=== PATIENT | male | born 1940 | race Caucasian/White ===

== ENCOUNTER 2018-02-12 22:57 | Emergency (ER) | payer MEDICARE, OTHER ==
[~2018-02-12] VITALS: Ht 182.9 cm; Wt 75.3 kg
--- OUTSIDE RECORDS SUMMARY | 2018-02-12 23:00 | XMS REPORT ---
Author Author [facility] Address Unknown Phone Unavailable Care Team Providers Care Burr Bench Operator Name Role Phone Andrew REYES Unavailable Unavailable KENROY OCONNELL Unavailable Unavailable Problems This patient has no known problems. Allergies, Adverse Reactions, Alerts This patient has no known allergies or adverse reactions. Medications This patient has no known medications. Results Test Description Test Time Test Comments Text Results Atomic Results Result Comments TISSUE EXAM 2017-09-18 15:40:00 Surgical Pathology Report Case: [id number] Authorizing Provider: Kenroy Oconnell MD Collected: 09/13/2017 1010 Ord ering Location: [facility] Laboratory Received: 09/13/2017 1017 Pathologist: Chris Cervantes MD Specimen: Polyp, Colon - Right/Ascending, ASCENDING COLON A. COLON, ASCENDING, ENDOSCOPIC SUBMUCOSAL DISSECTION: -TUBULAR ADENOMA - INKED/CAUTERIZED RESECTION MARGIN NEGATIVE FOR DYSPLASIA - PREVIOUS BIOPSY SITE IDENTIFIED Signing Pathologist Direct Phone Line: [phone] signed by Chris Cervantes MD on 09/18/2017 at 3:40 [id number] colon polyp Ascending colon polyp The specimen is received in a formalin-filled container labeled with the patient's information and labeled "ascending colon polyp" and consists of a shaved excision of colon mucosa measuring 4.5 x 3.2 x 0.1 cm. The mucosal surface has an area of nodularity that is carlson-red measuring 2 x 0.4 x 0.2 cm.The specimen is not oriented.Ink code: Periphery-blue, deep-black.The specimen is serially sectioned from one end to the other. The specimen is entirely submitted in A1 through A12 (cassette with more than one slice is one contiguous section).Pictures have been taken. CG/ew Performed BASIC METABOLIC PANEL 2017-09-15 06:03:00 SODIUM (BEAKER) (test fajc=660) 137 meq/L 136-145 POTASSIUM (BEAKER) (test ebsi=921) 3.6 meq/L 3.5-5.1 CHLORIDE (BEAKER) (test thtz=700) 105 meq/L 98-107 CO2 (BEAKER) (test pzcq=255) 25 meq/L 22-29 BLOOD UREA NITROGEN (BEAKER) (test knmn=705) 6 mg/dL 7-21 CREATININE (BEAKER) (test zhmi=827) 0.79 mg/dL 0.57-1.25 GLUCOSE RANDOM (BEAKER) (test ikgq=038) 100 mg/dL 70-105 CALCIUM (BEAKER) (test olac=083) 8.6 mg/dL 8.4-10.2 EGFR (BEAKER) (test tava=2309) 95 mL/min/1.73 sq m ESTIMATED GFR IS NOT ACCURATE CREATININE CLEARANCE IN PREDICTING GLOMERULAR FILTRATION RATE. ESTIMATED GFR IS NOT APPLICABLE FOR DIALYSIS PATIENTS. CBC W/PLT COUNT & AUTO [id number] 05:29:00* Test Item Value Reference Range Comments WHITE BLOOD CELL COUNT (BEAKER) (test gtnu=800) 5.7 K/ L 3.5-10.5 RED BLOOD CELL COUNT (BEAKER) (test orqk=036) 4.12 M/ L 4.63-6.08 HEMOGLOBIN (BEAKER) (test vqza=492) 12.5 GM/DL 13.7-17.5 HEMATOCRIT (BEAKER) (test maoh=604) 37.1 % 40.1-51.0 MEAN CORPUSCULAR VOLUME (BEAKER) (test nwhw=308) 90.0 fL 79.0-92.2 MEAN CORPUSCULAR HEMOGLOBIN (BEAKER) (test dlnq=553) 30.3 pg 25.7-32.2 MEAN CORPUSCULAR HEMOGLOBIN CONC (BEAKER) (test umea=116) 33.7 GM/DL 32.3-36.5 RED CELL DISTRIBUTION WIDTH (BEAKER) (test obfc=298) 13.1 % 11.6-14.4 PLATELET COUNT (BEAKER) (test zfpt=471) 136 K/CU MM 150-450 MEAN PLATELET VOLUME (BEAKER) (test vydo=522) 10.5 fL 9.4-12.4 NUCLEATED RED BLOOD CELLS (BEAKER) (test jpmh=652) 0 /100 WBC 0-0 NEUTROPHILS RELATIVE PERCENT (BEAKER) (test vcet=655) 65 % LYMPHOCYTES RELATIVE PERCENT (BEAKER) (test pssy=612) 19 % MONOCYTES RELATIVE PERCENT (BEAKER) (test xaru=200) 13 % EOSINOPHILS RELATIVE PERCENT (BEAKER) (test arxz=815) 2 % BASOPHILS RELATIVE PERCENT (BEAKER) (test qdwz=049) 1 % NEUTROPHILS ABSOLUTE COUNT (BEAKER) (test vkxe=684) 3.70 K/ L 1.78-5.38 LYMPHOCYTES ABSOLUTE COUNT (BEAKER) (test aplc=198) 1.05 K/ L 1.32-3.57 MONOCYTES ABSOLUTE COUNT (BEAKER) (test dtsk=618) 0.72 K/ L 0.30-0.82 EOSINOPHILS ABSOLUTE COUNT (BEAKER) (test yctc=527) 0.12 K/ L 0.04-0.54 BASOPHILS ABSOLUTE COUNT (BEAKER) (test zerb=470) 0.05 K/ L 0.01-0.08 IMMATURE GRANULOCYTES-RELATIVE PERCENT (BEAKER) (test oajj=7527) 0 % 0-1 CT, [id number] 13:06:00Reason for exam:->POST-OP PROBLEMWhat is the patient's sedation requirement?->No SedationFINAL REPORT ABDOMINAL AND PELVIS CT DATED 09/14/2017 CLINICAL INFORMATION: POST-OP PROBLEMABDOMINAL PAIN TECHNIQUE: Axial images of the abdomen and pelvis were obtained from diaphragm to the pubic symphysis with intravenous contrast. This exam was performed according to our departmental dose-optimization program, which includes automated exposure control, adjustment of the mA and/or kV according to patient size and/or use of interactive reconstruction technique. COMMENT: Multiple surgical clips are seen in the region of the proximal descending colon/cecum. There is soft tissue stranding adjacent to the cecum that represent post procedure changes. Small to moderate amount of free air is seen in the abdomen and pelvis. Subcutaneous emphysema is noted in the lower ab domen and pelvis. No small or large bowel dilatation is present. Appendix is nor mal in caliber. Liver and spleen are normal in size without focal abnormality. Gallbladder is contracted. No gallstone or biliary dilatation is noted. Pancrea s and adrenals are unremarkable. Both kidneys are normal in size and functioni ng. No hydronephrosis, hydroureter, urolithiasis is seen. Prostate is is normal in size. In her bladder is distended. No mass, adenopathy or ascites is present. IMPRESSION: 1. Pneumoperitoneum in the abdomen and pelvis suggestive of postop erative changes/bowel perforation.2. Surgical clips in the proximal ascending co scott/cecum.3. Subcutaneous emphysema in the abdomen and pelvis. Signed: Timothy Weiner MDReport Verified Date/Time: 09/14/2017 13:06:23 Reading Location: [facility] B1 C0 13Y CT Body Reading Room Electronically signed by: ROCKY WEINER M.D. on 01:06 PM [id number] 11:34:00* Test Item Value Reference Range Comments LIPASE (BEAKER) (test pgcw=723) 10 U/L 8-78 ALT (SGPT)2017-09-14 11:34:00* Test Item Value Reference Range Comments ALT (SGPT) (BEAKER) (test qgby=152) 12 U/L 6-55 AST (SGOT)2017-09-14 11:34:00* Test Item Value Reference Range Comments AST (SGOT) (BEAKER) (test gfli=614) 18 U/L 5-34 BASIC METABOLIC [id number] 11:34:00* Test Item Value Reference Range Comments SODIUM (BEAKER) (test ylxr=051) 139 meq/L 136-145 POTASSIUM (BEAKER) (test atzy=789) 3.9 meq/L 3.5-5.1 CHLORIDE (BEAKER) (test djtd=275) 104 meq/L 98-107 CO2 (BEAKER) (test vkjt=952) 25 meq/L 22-29 BLOOD UREA NITROGEN (BEAKER) (test fvqv=664) 6 mg/dL 7-21 CREATININE (BEAKER) (test bckq=472) 0.96 mg/dL 0.57-1.25 GLUCOSE RANDOM (BEAKER) (test wxww=149) 108 mg/dL 70-105 CALCIUM (BEAKER) (test rmvu=989) 9.3 mg/dL 8.4-10.2 EGFR (BEAKER) (test wdso=5807) 76 mL/min/1.73 sq m ESTIMATED GFR IS NOT ACCURATE CREATININE CLEARANCE IN PREDICTING GLOMERULAR FILTRATION RATE. ESTIMATED GFR IS NOT APPLICABLE FOR DIALYSIS PATIENTS. BILIRUBIN, ADULT [id number] 11:34:00* Test Item Value Reference Range Comments BILIRUBIN TOTAL (BEAKER) (test phpm=520) 1.2 mg/dL 0.2-1.2 CBC W/PLT COUNT & AUTO [id number] 11:15:00* Test Item Value Reference Range Comments WHITE BLOOD CELL COUNT (BEAKER) (test jrjd=463) 9.4 K/ L 3.5-10.5 RED BLOOD CELL COUNT (BEAKER) (test srno=165) 4.64 M/ L 4.63-6.08 HEMOGLOBIN (BEAKER) (test swuj=682) 14.2 GM/DL 13.7-17.5 HEMATOCRIT (BEAKER) (test dfqy=215) 42.3 % 40.1-51.0 MEAN CORPUSCULAR VOLUME (BEAKER) (test vrfv=280) 91.2 fL 79.0-92.2 MEAN CORPUSCULAR HEMOGLOBIN (BEAKER) (test uhyp=745) 30.6 pg 25.7-32.2 MEAN CORPUSCULAR HEMOGLOBIN CONC (BEAKER) (test xmvm=690) 33.6 GM/DL 32.3-36.5 RED CELL DISTRIBUTION WIDTH (BEAKER) (test caad=012) 13.2 % 11.6-14.4 PLATELET COUNT (BEAKER) (test pafk=677) 165 K/CU MM 150-450 MEAN PLATELET VOLUME (BEAKER) (test wuax=284) 10.3 fL 9.4-12.4 NUCLEATED RED BLOOD CELLS (BEAKER) (test txaa=390) 0 /100 WBC 0-0 NEUTROPHILS RELATIVE PERCENT (BEAKER) (test elir=312) 73 % LYMPHOCYTES RELATIVE PERCENT (BEAKER) (test tcft=440) 14 % MONOCYTES RELATIVE PERCENT (BEAKER) (test sgyk=253) 12 % EOSINOPHILS RELATIVE PERCENT (BEAKER) (test sptc=342) 1 % BASOPHILS RELATIVE PERCENT (BEAKER) (test ykun=448) 1 % NEUTROPHILS ABSOLUTE COUNT (BEAKER) (test raie=119) 6.81 K/ L 1.78-5.38 LYMPHOCYTES ABSOLUTE COUNT (BEAKER) (test bjye=495) 1.31 K/ L 1.32-3.57 MONOCYTES ABSOLUTE COUNT (BEAKER) (test zlga=197) 1.16 K/ L 0.30-0.82 EOSINOPHILS ABSOLUTE COUNT (BEAKER) (test gnyt=241) 0.05 K/ L 0.04-0.54 BASOPHILS ABSOLUTE COUNT (BEAKER) (test akgr=126) 0.05 K/ L 0.01-0.08 IMMATURE GRANULOCYTES-RELATIVE PERCENT (BEAKER) (test dibx=9745) 0 % 0-1 POCT-LACTIC ACID, [id number] 11:07:00* Test Item Value Reference Range Comments POC-LACTIC ACID, VENOUS (BEAKER) (test jbyo=1189) 1.2 mmol/L 0.9-1.7 TESTED AT [facility] [address] [facility] [address] [id number] 05:46:00* Test Item Value Reference Range Comments MAGNESIUM (BEAKER) (test jlpv=865) 2.0 mg/dL 1.6-2.6 Specimen slightly hemolyzed [id number] 05:46:00* Test Item Value Reference Range Comments PHOSPHORUS (BEAKER) (test chem=296) 2.7 mg/dL 2.3-4.7 Specimen slightly hemolyzed BASIC METABOLIC [id number] 05:46:00* Test Item Value Reference Range Comments SODIUM (BEAKER) (test muwp=426) 134 meq/L 136-145 POTASSIUM (BEAKER) (test zdru=900) 4.6 meq/L 3.5-5.1 Specimen slightly hemolyzed CHLORIDE (BEAKER) (test ystn=841) 107 meq/L 98-107 CO2 (BEAKER) (test jgsn=124) 15 meq/L 22-29 BLOOD UREA NITROGEN (BEAKER) (test cvdc=236) 7 mg/dL 7-21 CREATININE (BEAKER) (test eehq=624) 0.92 mg/dL 0.57-1.25 Specimen slightly hemolyzed GLUCOSE RANDOM (BEAKER) (test dgyx=003) 115 mg/dL 70-105 CALCIUM (BEAKER) (test vwlq=146) 8.4 mg/dL 8.4-10.2 EGFR (BEAKER) (test wuyi=6600) 80 mL/min/1.73 sq m ESTIMATED GFR IS NOT ACCURATE CREATININE CLEARANCE IN PREDICTING GLOMERULAR FILTRATION RATE. ESTIMATED GFR IS NOT APPLICABLE FOR DIALYSIS PATIENTS. CBC W/PLT COUNT & AUTO [id number] 05:19:00* Test Item Value Reference Range Comments WHITE BLOOD CELL COUNT (BEAKER) (test eyiv=036) 11.5 K/ L 3.5-10.5 RED BLOOD CELL COUNT (BEAKER) (test cinu=684) 4.65 M/ L 4.63-6.08 HEMOGLOBIN (BEAKER) (test tiwm=819) 14.2 GM/DL 13.7-17.5 HEMATOCRIT (BEAKER) (test opcn=042) 42.3 % 40.1-51.0 MEAN CORPUSCULAR VOLUME (BEAKER) (test quob=173) 91.0 fL 79.0-92.2 MEAN CORPUSCULAR HEMOGLOBIN (BEAKER) (test mwxu=755) 30.5 pg 25.7-32.2 MEAN CORPUSCULAR HEMOGLOBIN CONC (BEAKER) (test qivt=334) 33.6 GM/DL 32.3-36.5 RED CELL DISTRIBUTION WIDTH (BEAKER) (test hwgi=041) 13.2 % 11.6-14.4 PLATELET COUNT (BEAKER) (test isbo=431) 102 K/CU MM 150-450 MEAN PLATELET VOLUME (BEAKER) (test tobt=882) 11.0 fL 9.4-12.4 NUCLEATED RED BLOOD CELLS (BEAKER) (test dvfz=896) 0 /100 WBC 0-0 NEUTROPHILS RELATIVE PERCENT (BEAKER) (test bfrb=539) 86 % LYMPHOCYTES RELATIVE PERCENT (BEAKER) (test pzzz=086) 5 % MONOCYTES RELATIVE PERCENT (BEAKER) (test schh=458) 9 % EOSINOPHILS RELATIVE PERCENT (BEAKER) (test zxpu=024) 0 % BASOPHILS RELATIVE PERCENT (BEAKER) (test kmvs=144) 0 % NEUTROPHILS ABSOLUTE COUNT (BEAKER) (test kabv=381) 9.88 K/ L 1.78-5.38 LYMPHOCYTES ABSOLUTE COUNT (BEAKER) (test xhzz=006) 0.62 K/ L 1.32-3.57 MONOCYTES ABSOLUTE COUNT (BEAKER) (test nwgt=115) 0.98 K/ L 0.30-0.82 EOSINOPHILS ABSOLUTE COUNT (BEAKER) (test avcq=371) 0.00 K/ L 0.04-0.54 BASOPHILS ABSOLUTE COUNT (BEAKER) (test khki=431) 0.02 K/ L 0.01-0.08 IMMATURE GRANULOCYTES-RELATIVE PERCENT (BEAKER) (test kphq=6058) 0 % 0-1
--- OUTSIDE RECORDS SUMMARY | 2018-02-12 23:00 | XMS REPORT | Clinical Summary ---
Author Author [facility] Organization [facility] Address Unknown Phone Unavailable Care Team Providers Care Date Puller Name Role Phone Jagjit Sharma PCP Allergies No Known Allergies Medications End Date Status Medication Sig Dispensed Refills Start Date Active loratadine (CLARITIN) 10 Take 10 mg by 0 mg tablet mouth nightly. Active quinapril (ACCUPRIL) 20 Take 20 mg by 0 MG tablet mouth nightly. Active tamsulosin (FLOMAX) 0.4 Take 0.4 mg 0 mg Cp24 24 hr capsule by mouth nightly. Active aspirin 81 MG EC tablet Take 81 mg by 0 mouth nightly. Active bimatoprost (LUMIGAN) Place 1 drop 0 0.03 % ophthalmic drops into both eyes nightly. Active brimonidine-timolol 1 drop 2 0 (COMBIGAN) 0.2-0.5 % (two) times ophthalmic solution daily Both eyes . Active simvastatin (ZOCOR ORAL) Take 10 mg by 0 mouth nightly. 04/24/2017 Discontinued loratadine (CLARITIN) 10 Take 10 mg by 0 mg tablet mouth daily. 04/24/2017 Discontinued quinapril (ACCUPRIL) 10 Take 10 mg by 0 MG tablet mouth nightly. 09/21/2017 ciprofloxacin HCl (CIPRO) Take 1 tablet 12 tablet 0 500 MG tablet (500 mg 8 total) by mouth 2 (two) times daily for 6 days. 09/21/2017 metroNIDAZOLE (FLAGYL) Take 1 tablet 18 tablet 0 500 MG tablet (500 mg 8 total) by mouth 3 (three) times daily for 6 days. 09/22/2017 docusate sodium (COLACE) Take 1 14 capsule 0 100 MG capsule capsule (100 8 mg total) by mouth 2 (two) times daily for 7 days. Active Problems Problem Noted Date Pneumoperitoneum 09/14/2017 Abdominal pain 09/12/2017 Encounters Care Team Description Date Type Specialty Josh Richards MD Nalam, MD Jay Luu Umar, MD Pneumoperitoneum (Primary Dx); Subcutaneous emphysema, initial encounter ([facility]); Generalized abdominal pain; High cholesterol; Essential hypertension 09/14/2017 Emergency Oncology - 09/15/2017 Kenroy Oconnell MD Shiekh Sroujieh, Vanesa Linares MD Polyp of ascending colon, unspecified type (Primary Dx) 09/13/2017 Orders Only Lab Katie Lee CRNA 09/12/2017 Anesthesia Gastroenterology Event Kenroy Oconnell MD COLONOSCOPY,SUBMUCOSAL RESECTION 09/12/2017 Surgery Gastroenterology Kenroy Oconnell MD Shiekh Sroujieh, Vanesa Linares MD Abdominal pain, unspecified abdominal location; Polyp of colon, unspecified part of colon, unspecified type 09/12/2017 Hospital Oncology - Encounter 09/13/2017 Resource, [facility] P[facility] Phone 08/22/2017 Hospital Pre-Admission Testing Encounter Otilia Arredondo MD 05/08/2017 Anesthesia Event Arnav Chilel MD COLONOSCOPY,POLYPECTOMY 05/08/2017 Surgery Arnav Chilel MD 05/08/2017 Hospital Encounter Resource, [facility] Pread[facility] Phone 04/24/2017 Hospital Pre-Admission Testing Encounter after 02/11/2017 Social History Date Tobacco Use Types Packs/Day Years Used Quit: 1961 Former Smoker 0.5 2 Smokeless Tobacco: Never Used Alcohol Use Drinks/Week oz/Week Comments Yes 21 Glasses of 12.6 wine Sex Assigned at Date Recorded Not on file Industry Job Start Date Occupation Not on file Not on file Not on file Travel End Travel History Travel Start No recent travel history available. Last Filed Vital Signs Time Taken Vital Sign Reading 09/15/2017 11:00 AM CDT Blood Pressure 140/73 09/15/2017 11:00 AM CDT Pulse 55 09/15/2017 11:00 AM CDT Temperature 36.3 C (97.4 F) 09/15/2017 11:00 AM CDT Respiratory Rate 18 09/15/2017 11:00 AM CDT Oxygen Saturation 96% - Inhaled Oxygen - Concentration 09/14/2017 4:08 PM CDT Weight 81.5 kg (179 lb 10.8 oz) 09/14/2017 10:17 AM CDT Height 182.9 cm (6') 09/14/2017 4:08 PM CDT Body Mass Index 24.37 Plan of Treatment Not on file Procedures Comments Procedure Name Priority Date/Time Associated Diagnosis REPORT OF PROCEDURE - 09/16/2017 ENDOSCOPY URL 1:15 PM CDT CBC W/PLT COUNT & AUTO Routine 09/15/2017 DIFFERENTIAL 4:17 AM CDT CBC W/PLT COUNT & AUTO Routine 09/15/2017 DIFFERENTIAL 4:17 AM CDT BASIC METABOLIC PANEL (7) Routine 09/15/2017 4:[address] ABDOMEN/PELVIS WITH IV STAT 09/14/2017 CONTRAST 12:30 PM CDT POCT-LACTIC ACID, VENOUS Routine 09/14/2017 11:04 AM CDT CBC W/PLT COUNT & AUTO STAT 09/14/2017 DIFFERENTIAL 11:02 AM CDT BILIRUBIN, ADULT TOTAL STAT 09/14/2017 11:02 AM CDT LIPASE STAT 09/14/2017 11:02 AM CDT AST (SGOT) STAT 09/14/2017 11:02 AM CDT ALT (SGPT) STAT 09/14/2017 11:02 AM CDT CBC W/PLT COUNT & AUTO STAT 09/14/2017 DIFFERENTIAL 11:02 AM CDT BASIC METABOLIC PANEL (7) STAT 09/14/2017 11:02 AM CDT TISSUE EXAM AP Routine 09/13/2017 Polyp of ascending colon, 10:10 AM CDT unspecified type CBC W/PLT COUNT & AUTO Routine 09/13/2017 DIFFERENTIAL 4:51 AM CDT CBC W/PLT COUNT & AUTO Routine 09/13/2017 DIFFERENTIAL 4:51 AM CDT PHOSPHORUS Routine 09/13/2017 4:51 AM CDT MAGNESIUM Routine 09/13/2017 4:51 AM CDT BASIC METABOLIC PANEL (7) Routine 09/13/2017 4:51 AM CDT COLONOSCOPY,SCLEROTHERAPY 09/12/2017 Tubular adenoma 12:30 PM CDT COLONOSCOPY,SUBMUCOSAL 09/12/2017 Tubular adenoma RESECTION 12:30 PM CDT ANATOMIC PATHOLOGY 05/23/2017 SCANNED - SCAN 12:00 PM CDT REPORT OF PROCEDURE - 05/08/2017 ENDOSCOPY URL 12:02 PM CARDIAC SONOGRAPHER COLONOSCOPY,BIOPSY 05/08/2017 History of prostate 9:30 AM CARDIAC SONOGRAPHER cancer Essential hypertension High cholesterol Conductive hearing loss, bilateral Screen for colon cancer COLONOSCOPY,SUBMUCOSAL 05/08/2017 History of prostate INJECTION 9:30 AM CARDIAC SONOGRAPHER cancer Essential hypertension High cholesterol Conductive hearing loss, bilateral Screen for colon cancer COLONOSCOPY,POLYPECTOMY 05/08/2017 History of prostate 9:30 AM CARDIAC SONOGRAPHER cancer Essential hypertension High cholesterol Conductive hearing loss, bilateral Screen for colon cancer after 02/11/2017 Results * REPORT OF PROCEDURE - ENDOSCOPY URL (09/16/2017 1:15 PM CDT) Narrative Performed At * CBC with platelet count + automated diff (09/15/2017 4:17 AM CDT) Only the most recent of 3 results within the time period is included. WBC 5.7 3.5 - 10.5 K/L [facility] RBC 4.12 (L) 4.63 - 6.08 M/L [facility] Hemoglobin 12.5 (L) 13.7 - 17.5 GM/DL [facility] Hematocrit 37.1 (L) 40.1 - 51.0 % [facility] MCV 90.0 79.0 - 92.2 fL [facility] MCH 30.3 25.7 - 32.2 pg [facility] MCHC 33.7 32.3 - 36.5 GM/DL [facility] RDW 13.1 11.6 - 14.4 % [facility] Platelets 136 (L) 150 - 450 K/CU MM [facility] MPV 10.5 9.4 - 12.4 fL [facility] nRBC 0 0 - 0 /100 WBC [facility] % Neutros 65 % [facility] % Lymphs 19 % [facility] % Monos 13 % [facility] % Eos 2 % [facility] % Baso 1 % [facility] # Neutros 3.70 1.78 - 5.38 K/L [facility] # Lymphs 1.05 (L) 1.32 - 3.57 K/L [facility] # Monos 0.72 0.30 - 0.82 K/L [facility] # Eos 0.12 0.04 - 0.54 K/L [facility] # Baso 0.05 0.01 - 0.08 K/L [facility] Immature 0 0 - 1 % [facility] Granulocytes-Relative [facility] Specimen Blood - Arm, Right Performing Organization Address City/State/Zipcode Phone Number [facility] [address] [place] [address] [facility] * Basic metabolic panel (09/15/2017 4:17 AM CDT) Only the most recent of 3 results within the time period is included. Sodium 137 136 - 145 meq/L [facility] Potassium 3.6 3.5 - 5.1 meq/L [facility] Chloride 105 98 - 107 meq/L [facility] CO2 25 22 - 29 meq/L [facility] BUN 6 (L) 7 - 21 mg/dL [facility] Creatinine 0.79 0.57 - 1.25 mg/dL [facility] Glucose 100 70 - 105 mg/dL [facility] Calcium 8.6 8.4 - 10.2 mg/dL [facility] EGFR 95Comment: ESTIMATED GFR IS mL/min/1.73 sq m [facility] NOT ACCURATE CREATININE [facility] CLEARANCE IN PREDICTING GLOMERULAR FILTRATION RATE. ESTIMATED GFR IS NOT APPLICABLE FOR DIALYSIS PATIENTS. Specimen Blood - Arm, Right Performing Organization Address City/State/Zipcode Phone Number [facility] [address] [place] [address] [facility] * CT abdomen/pelvis with IV contrast (09/14/2017 12:30 PM CDT) Narrative Performed At FINAL REPORT [employer] ABDOMINAL AND PELVIS CT DATED 09/14/2017 CLINICAL INFORMATION:POST-OP PROBLEM ABDOMINAL PAIN TECHNIQUE:Axial images of the abdomen and pelvis were [...] Subcutaneous emphysema is noted in the lower abdomen and pelvis. No small or large bowel dilatation is present. Appendix is normal in caliber. Liver and spleen are normal in size without focal abnormality. Gallbladder is contracted. No gallstone or biliary dilatation is noted. Pancreas and adrenals are unremarkable. Both kidneys are normal in size and functioning. No hydronephrosis, hydroureter, urolithiasis is seen. Prostate is is normal in size. In her bladder is distended. No mass, adenopathy or ascites is present. IMPRESSION: 1. Pneumoperitoneum in the abdomen and pelvis suggestive of postoperative changes/bowel perforation. 2. Surgical clips in the proximal ascending colon/cecum. 3. Subcutaneous emphysema in the abdomen and pelvis. Signed: Rocky Weiner MD Report Verified Date/Time:09/14/2017 13:06:23 Reading Location: [facility] C013Y CT Body Reading Room Procedure Note Interface, External Ris In - 09/14/2017 1:08 PM CDT FINAL REPORT ABDOMINAL AND PELVIS CT DATED 09/14/2017 CLINICAL INFORMATION: POST-OP PROBLEM ABDOMINAL PAIN TECHNIQUE: Axial images of the abdomen [...] Subcutaneous emphysema is noted in the lower abdomen and pelvis. No small or large bowel dilatation is present. Appendix is normal in caliber. Liver and spleen are normal in size without focal abnormality. Gallbladder is contracted. No gallstone or biliary dilatation is noted. Pancreas and adrenals are unremarkable. Both kidneys are normal in size and functioning. No hydronephrosis, hydroureter, urolithiasis is seen. Prostate is is normal in size. In her bladder is distended. No mass, adenopathy or ascites is present. IMPRESSION: 1. Pneumoperitoneum in the abdomen and pelvis suggestive of postoperative changes/bowel perforation. 2. Surgical clips in the proximal ascending colon/cecum. 3. Subcutaneous emphysema in the abdomen and pelvis. Signed: Rocky Weiner MD Report Verified Date/Time: 09/14/2017 13:06:23 Reading Location: [facility] B1 C013Y CT Body Reading Room Performing Organization Address City/State/Zipcode Phone Number [facility] * POC-Lactic Acid, Venous (09/14/2017 11:04 AM CDT) POC-Lactic Acid, Venous 1.2Comment: TESTED AT [facility] 0.9 - 1.7 mmol/L [address] Specimen Blood Performing Organization Address [facility] Phone Number [address] * ALT (SGPT) (09/14/2017 11:02 AM CDT) ALT 12 6 - 55 U/L [facility] Specimen Blood - Arm, Left Performing Organization Address [facility] Phone Number [address] * AST (SGOT) (09/14/2017 11:02 AM CDT) AST 18 5 - 34 U/L [facility] Specimen Blood - Arm, Left Performing Organization Address [facility] Phone Number [address] * Lipase (09/14/2017 11:02 AM CDT) Lipase 10 8 - 78 U/L [facility] Specimen Blood - Arm, Left Performing Organization Address [facility] Phone Number [address] * Bilirubin, adult total (09/14/2017 11:02 AM CDT) Total Bilirubin 1.2 0.2 - 1.2 mg/dL [facility] Specimen Blood - Arm, Left Performing Organization Address [facility] Phone Number [address] * Tissue Exam (09/13/2017 10:10 AM CDT) Case Report Surgical Pathology [facility] Report [facility] Case: [id number] Authorizing Provider:Kenroy Oconnell MDCollected: 09/13/2017 1010 [facility] Re[facility]: 09/13/2017 1017 Pathologist: Chris Cervantes MD Specimen:Polyp, Colon - Right/Ascending, ASCENDING COLON DIAGNOSIS A. COLON, ASCENDING, [facility] ENDOSCOPIC SUBMUCOSAL [facility] DISSECTION: -TUBULAR ADENOMA - INKED/CAUTERIZED RESECTION MARGIN NEGATIVE FOR DYSPLASIA - PREVIOUS BIOPSY SITE IDENTIFIED Signing Pathologist Direct Phone Line: [phone] CPT Code(s) 56241 [facility] CLINICAL HISTORY Ascending colon polyp [facility] SPECIMEN SOURCE Ascending colon polyp [facility] GROSS DESCRIPTION The specimen is received in a [facility] formalin-filled container [facility] labeled with the patient's information and labeled "ascending colon polyp" and consists of a shaved excision of colon mucosa measuring 4.5 x 3.2 x 0.1 cm. The mucosal surface has an area of nodularity that is carlson-red measuring 2 x 0.4 x 0.2 cm. The specimen is not oriented. Ink code: Periphery-blue, deep-black. The specimen is serially sectioned from one end to the other. The specimen is entirely submitted in A1 through A12 (cassette with more than one slice is one contiguous section). Pictures have been taken. CG/ew MICROSCOPIC DESCRIPTION Performed [facility] Specimen Tissue - Polyp, Colon - Right/Ascending Performing Organization Address City/[facility] Phone Number [facility] [address] [place] [address] [facility] * Phosphorus (09/13/2017 4:51 AM CDT) Phosphorus 2.7Comment: Specimen slightly 2.3 - 4.7 mg/dL [facility] hemolyzed [facility] Specimen Blood - Arm, Left Performing Organization Address [facility]/Zipcode Phone Number [facility] [address] [place] [address] [facility] * Magnesium (09/13/2017 4:51 AM CDT) Magnesium 2.0Comment: Specimen slightly 1.6 - 2.6 mg/dL [facility] hemolyzed [facility] Specimen Blood - Arm, Left Performing Organization Address City/State/Zipcode Phone Number [facility] [address] [place] [address] [facility] * ANATOMIC PATHOLOGY SCANNED - SCAN (05/23/2017 12:00 PM CDT) Narrative Performed At * REPORT OF PROCEDURE - ENDOSCOPY URL (05/08/2017 12:02 PM CARDIAC SONOGRAPHER) Narrative Performed At after 02/11/2017 Insurance Payer Benefit Subscriber ID Type Phone Address Plan / Group MEDICARE MEDICARE A xxxxxxxxxx Medicare B CIGNA - MGD CARE CIGNA xxxxxxxxxxx HMO/POS HMO/POS/OP EN ACCESS xxxxxxxxx Other Govt FOR LIFE (, [place], USP, etc.) Advance Directives For more information, please contact: [facility] [address] [place] [address] Date Inactivated Comments Code Status Date Activated 09/15/2017 5:18 PM Full Code 09/14/2017 3:09 PM This code status was determined by: Patient 09/13/2017 4:16 PM Full Code 09/12/2017 6:19 PM This code status was determined by: Patient
== END 2018-02-12 23:37 | disposition home or self-care (01) ==
LOC: FSED 22:57
DX: R05 Cough (principal); J20.9 Acute bronchitis, unspecified; I10 Essential (primary) hypertension
CPT/HCPCS: 99283

== ENCOUNTER 2019-12-17 18:38 | Emergency (ER) | payer MEDICARE, OTHER ==
[~2019-12-17] VITALS: Ht 182.9 cm; Wt 75.3 kg
--- NOTE | 2019-12-17 19:08 | Emergency Department Note ---
History of Present Illnes History of Present Illness Chief Complaint: Genitourinary History of Present Illness This is a 79 year old male with intermittent right groin pain and testicle pain for past week. states pain started again today at 1730 and pain has resolved upon arrival to er, states pain starts when he is exercising and goes away after laying down within about 5 minutes. Historian: Patient Arrival Mode: [place] Onset (how long ago): week(s) (1) Location: right groin/testicle Quality: pain Radiation: Reports non-radiation Severity: moderate Onset quality: sudden Duration (how long): week(s) (1) Timing of current episode: intermittent Progression: resolved Chronicity: recurrent Context: Denies recent illness, Denies recent surgery, Denies trauma/injury Relieving factors: none Exacerbating factors: other (exercising) Past Medical/Family History Physician Review I have reviewed the patient's past medical and family history. Any updates have been documented here. Past Medical History Recent Fever: No Clinical Suspicion of Infectio: No New/Unexplained Change in Ment: No Past Medical History: Hypertension, Cancer, Hyperlipedemia Other Medical History: PROSTATE Past Surgical History: None Social History Smoking Cessation: Never Smoker Alcohol Use: None Any Illegal Drug Use: No Family History Family history of heart diseas: No Other Last Tetanus: UNK Review of Systems Review of Systems Constitutional: Reports no symptoms EENTM: Reports no symptoms Cardiovascular: Reports no symptoms Respiratory: Reports no symptoms Gastrointestinal: Reports no symptoms Genitourinary: Reports as per HPI Musculoskeletal: Reports no symptoms Integumentary: Reports no symptoms Neurological: Reports no symptoms Psychological: Reports no symptoms Endocrine: Reports no symptoms Hematological/Lymphatic: Reports no symptoms Physical Exam Related Data Allergies: Coded Allergies: No Known Allergies (Unverified , 02/12/18) Triage Vital Signs Vital Signs Date Time Temp Pulse Resp B/P (MAP) Pulse Ox O2 Delivery O2 Flow Rate FiO2 12/17/19 18:48 98.1 76 17 178/90 98 Room Air Vital signs reviewed: Yes Physical Exam CONSTITUTIONAL Constitutional: Present well-developed, Present well-nourished HENT HENT: Present normocephalic, Present atraumatic, Present oropharynx clear/moist, Present nose normal HENT L/R: Present left ext ear normal, Present right ext ear normal EYES Eyes: Reports PERRL, Reports conjunctivae normal NECK Neck: Present ROM normal PULMONARY Pulmonary: Present effort normal, Present breath sounds normal CARDIOVASCULAR Cardiovascular: Present regular rhythm, Present heart sounds normal, Present capillary refill normal, Present normal rate GASTROINTESTINAL Abdominal: Present soft, Present nontender, Present bowel sounds normal GENITOURINARY Genitourinary: Present penis normal, Present other (no testicular swellking or tenderness, small hernia present when coughing) SKIN Skin: Present warm, Present dry MUSCULOSKELETAL Musculoskeletal: Present ROM normal NEUROLOGICAL Neurological: Present alert, Present oriented x 3, Present no gross motor or sensory deficits PSYCHOLOGICAL Psychological: Present mood/affect normal, Present judgement normal Results Laboratory Laboratory Laboratory Tests Test 12/17/19 20:20 Urine Color Yellow (YELLOW) Urine Clarity Clear (CLEAR) Urine pH 6.5 (5 - 7) Urine Specific [place] 1.015 (1.010-1.025) Urine Protein Negative (NEGATIVE) Urine Glucose (UA) Negative (NEGATIVE) Urine Ketones Negative (NEGATIVE) Urine Blood Negative (NEGATIVE) Urine Nitrite Negative (NEGATIVE) Urine Bilirubin Negative (NEGATIVE) Urine Urobilinogen 0.2 mg/dL (0.2 - 1) Urine Leukocyte Esterase Negative (NEGATIVE) Lab results reviewed: Yes Imaging Imaging results reviewed: Yes Impressions Procedure: [id number] US/US TESTICULAR DOPPLER LTD Exam Date: 12/17/19 Exam Time: 1915 REPORT STATUS: Signed EXAM: Scrotal Ultrasound with Duplex INDICATION: COMPARISON: None TECHNIQUE: Transverse and longitudinal images were obtained of the scrotum with grayscale imaging, color Doppler and spectral waveform analysis. FINDINGS: Right testis: Size: 3.8 x 1.7 x 3.2 cm, normal in size. Echogenicity: Normal Mass/Cysts: None Left testis: Size: 3.6 x 1.8 x 2.7 cm, normal in size. Echogenicity: Normal Mass/Cysts: None Epididymis: Appearance: Normal in size without increased vascularity. Mass/Cysts: None Extratesticular: Masses: None Hydrocele: None Varicocele: None Doppler: Normal arterial flow to both testes and symmetrical flow on color Doppler evaluation is seen. No evidence of testicular torsion. IMPRESSION: 1. No evidence of testicular torsion. 2. Normal scrotal ultrasound exam. Signed by: Vinh Montiel MD on 12/17/2019 8:19 PM Dictated By: VINH MONTIEL MD 18 Transcribed By: DIMITRY on 12/17/192018 COPY TO: SASHA HERNANDEZ MD~ Assessment & Plan Medical Decision Making MDM pt with intermittent right groin and testicle pain testicular u/s, ua ordered to eval for torsion, epididymitis, mass, uti Assessment & Plan Final Impression: (1) Right inguinal hernia Depart Disposition: HOME, SELF-CARE Last Vital Signs Date Time Temp Pulse Resp B/P (MAP) Pulse Ox O2 Delivery O2 Flow Rate FiO2 12/17/19 18:48 98.1 76 17 178/90 98 Room Air SASHA HERNANDEZ MD Dec 17, 2019 19:08
--- OUTSIDE RECORDS SUMMARY | 2019-12-17 19:42 | XMS REPORT | Clinical Summary ---
Author Author [facility] 365[facility] CenterMicro[facility] Address Unknown Phone Unavailable Care Team Providers Care Registered Nurse Step Down Name Role Phone Jagjit Sharma PCP Allergies [...] Take 10 mg by 0 mouth nightly. Active bicalutamide (CASODEX) 50 Take 50 mg by 0 MG tablet mouth 3 (three) times daily. Active netarsudil Apply to 0 mesylat/latanoprost eye(s). (ROCKLATAN OPHT) Active AZITHROMYCIN ORAL Take by 0 mouth. Active Problems Problem Noted Date Pneumoperitoneum 09/14/2017 Abdominal pain 09/12/2017 Encounters Care Team Description Date Type Specialty Mel Rondon CRNA 11/06/2019 Anesthesia Event Arnav Chilel MD COLONOSCOPY,POLYPECTOMY 11/06/2019 Surgery Arnav Chilel MD 11/06/2019 Hospital Encounter 11/06/2019 Travel 11/04/2019 Hospital Pre-Admission Testi ng Encounter 11/04/2019 Travel after 12/16/2018 Social History Date Tobacco Use Types Packs/Day Years Used Quit: 1961 Former Smoker 0.5 2 Smokeless Tobacco: Never Used Alcohol Use Drinks/Week oz/Week Comments Yes 14 Glasses of 9.0 wine 1 Cans of beer Sex Assigned at Date Recorded Not on file Industry Job Start Date Occupation Not on file Not on file Not on file Travel End Travel History Travel Start No recent travel history available. Last Filed Vital Signs Time Taken Vital Sign Reading 11/06/2019 9:30 AM CDT Blood Pressure 115/66 11/06/2019 9:35 AM CDT Pulse 67 11/06/2019 9:10 AM CDT Temperature 36 C (96.8 F) 11/06/2019 9:35 AM CDT Respiratory Rate 20 11/06/2019 9:35 AM CDT Oxygen Saturation 98% - Inhaled Oxygen - Concentration 11/06/2019 7:42 AM CDT Weight 75.5 kg (166 lb 8 oz) 11/06/2019 7:42 AM CDT Height 185.4 cm (6' 1") 11/06/2019 7:42 AM CDT Body Mass Index 21.97 Plan of Treatment Health Maintenance Due Date Last Done Comments PNEUMOCOCCAL 65+ 2005 LOW/MEDIUM RISK (1 of 2 - PCV13) MEDICARE ANNUAL WELLNESS 12/10/2006 (YEAR 2 or FIRST YEAR if no IPPE) INFLUENZA VACCINE (#1) 2019 Procedures Comments Procedure Name Priority Date/Time Associated Diag nosis REPORT OF PROCEDURE - 11/06/2019 ENDOSCOPY URL 9:18 AM CDT TISSUE EXAM AP Routine 11/06/2019 8:55 AM CDT COLONOSCOPY,POLYPECTOMY 11/06/2019 Screen for [facility] cancer 8:30 AM CDT after 12/16/2018 Results * REPORT OF PROCEDURE - ENDOSCOPY URL (11/06/2019 9:18 AM CDT) Narrative Performed At This result has an attachment that is n ot available. * Tissue Exam (11/06/2019 8:55 AM CDT) Case Report Surgical Pathology [facility] TH Report [facility] Case: [id number] Authorizing Provider:Arnav Chilel MD Collected: 11/06/2019 08:55 AM Ordering Location: [facility] ENDOSCOPY Received: 11/06/2019 11:43 AM SERVICES Pathologist: Kylah Montero MD Specimen:Polyp, Colon - Cecum, x 2 DIAGNOSIS CECAL POLYP, BIOPSY: MAMTA [place] ALTH - POLYPOID COLONIC MUCOSA [facility] WITH NO SIGNIFICANT PATHOLOGIC ABNORMALITY - NO DYSPLASIA Signing Pathologist Direct Phone Line: [phone] CPT Code(s) CC/ew [place] [place] [id number] [facility] CLINICAL HISTORY Preop diagnosis: Screen for MAMTA LERO[place] [facility] colon cancer [facility] SPECIMEN SOURCE Cecum colon polyp [facility] GROSS DESCRIPTION Received in formalin labeled [facility] ST Davis Rylie [facility] with the patient's name, [facility] accession number and "cecum colon polyp" are two carlson-pink tissue fragments measuring up to 0.2 cm in greatest dimension which are filtered and submitted in toto in A1. PA/pl MICROSCOPIC DESCRIPTION Performed. [facility] Specimen Tissue - Polyp, Colon - Cecum Performing Organization Address City/State/Rustde Ph one Number [facility] [address] [facility] after 12/16/2018 Insurance Payer Benefit Subscriber ID Type Phone Address Plan / Group MEDICARE MEDICARE A xxxxxxxxxxx Medicare B CIGNA - MGD CARE CIGNA xxxxxxxxxxx HMO/POS HMO/POS/OP EN ACCESS xxxxxxxxx Other Govt FOR LIFE ([facility] [place], [facility], etc.) [phone] Advance Directives For more information, please contact: [facility] [address] [address] Date Inactivated Comments Code Status Date Activated 09/15/2017 5:18 PM Full Code 09/14/2017 3:09 PM This code status was determined by: Patient 09/13/2017 4:16 PM Full Code 09/12/2017 6:19 PM This code status was determined by: Patient
--- OUTSIDE RECORDS SUMMARY | 2019-12-17 19:42 | XMS REPORT | Continuity of Care Document ---
Author Author [facility] t Organization [facility] Address 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 Name Role Phone NO, PCP PCP Unavailable OWEN JUÁREZ Attphys Unavailable Stephane OZUNA, Linnette Attphys MILAGROS JOSEPH Attphys Unavailable Getachew OZUNA, Milagros José Attphys Alcon Mel LEYVA Attphys Zandra OZUNA, Joseluis Attphys SERRANO III, MARY Attphys Unavailable JUSTA BORGES Attphys Unavailable Massimo LIMA Attphys Unavailable Zachary OZUNA, ABDIRIZAK, Kashmir Danielson Attphys Edilson CÁRDENAS Attphys Unavailable Christofer OZUNA, Mk Attphys Andrew REYES Attphys Unavailable OTHMAN, MOHAMED Attphys Unavailable MILAGROS JOSEPH Admphys Unavailable SERRANO III, MARY Admphys Unavailable NALAM, STACEY JULIANNE Admphys Unavailable OTHMAN, MOHAMED Admphys Unavailable Payers Payer Name Policy Type Policy Number Effective Date Expiration Date S barbara MEDICARE PART A AND B [id number] 2005 00:00:00 CIGNA O POS OPEN ACCESS [id number] 2016 00:00:00 MEDICAREMEDICARE A BxxxxxxxxxxxMedicare xxxxxxxxxxx [facility] CIGNA - MGD CARECIGNA HMO/POS/OPEN ACCESSxxxxxxxxxxxHMO/POS xxxxxxxxxxx [facility] TRICARETRICARE FOR LIFExxxxxxxxxOther Govt (, [place], [place] HP, etc.) xxxxxxxxx [facility] Problems Condition Name Condition Details Condition Category Status Onset Date Resolution Date Last Treatment Date Treating Clinician Comments Source Pneumoperitoneum Pneumoperitoneum Disease Active 2017-09-14 00:00:00 [facility] Abdominal pain Abdominal pain Disease Active 2017-09-12 00:00:00 [facility] Allergies, Adverse Reactions, Alerts This patient has no known allergies or adverse reactions. Social History Social Habit Start Date Stop Date Quantity Comments Source History of tobacco use Current smoker [facility] Sex Assigned At [facility] Cigarettes smoked current (pack per day) - Reported 00:00:00 2019-11-06 00:00:00 [facility] Cigarette pack-years 2019-11-06 00:00:00 2019-11-06 00:00:00 [facility] Smoking Status Start Date Stop Date Source Former smoker 2019-11-06 00:00:00 2019-11-06 00:00:00 [facility] Medications Ordered Medication Name Filled Medication Name Start Date Stop Da te Current Medication? Ordering Clinician Indication Dosage Frequency Signature (SIG) Comments Components Source netarsudil mesylat/latanoprost (ROCKLATAN OPHT) 2019-11-04 14:28 :04 Yes Apply to eye(s). [facility] AZITHROMYCIN ORAL 2019-11-04 14:28:04 Yes Ta ke by mouth. [facility] bicalutamide (CASODEX) 50 MG tablet 2019-11-04 14:08:43 Yes 50mg [id number] Take 50 mg by mouth 3 (three) times daily. [facility] simvastatin (ZOCOR ORAL) 2017-08-22 11:02:00 Yes 10mg QD Take 10 mg by mouth nightly. [facility] bimatoprost (LUMIGAN) 0.03 % ophthalmic drops 2017-04-24 17:09:3 5 Yes 1[drp] QD Place 1 drop into both eyes nightly. [facility] brimonidine-timolol (COMBIGAN) 0.2-0.5 % ophthalmic solution 2017-04-24 17:09:35 Yes 1[drp] Q.5D 1 drop 2 (two) times daily Alonso th eyes . [facility] loratadine (CLARITIN) 10 mg tablet 2017-04-24 17:09:34 Yes 10mg QD Take 10 mg by mouth nightly. [facility] quinapril (ACCUPRIL) 20 MG tablet 2017-04-24 17:09:34 Yes 20mg QD Take 20 mg by mouth nightly. [facility] tamsulosin (FLOMAX) 0.4 mg Cp24 24 hr capsule 2017-04-24 17:09:3 4 Yes .4mg QD Take 0.4 mg by mouth nightly. [facility] aspirin 81 MG EC tablet 2017-04-24 17:09:34 Yes 81mg QD Take 81 mg by mouth nightly. [facility] Vital Signs Vital Name Observation Time Observation Value Comments Source HEIGHT 2019-09-14 00:00:00 182.8 cm WEIGHT 2019-09-14 00:00:00 80.8 kg Heart rate 2019-11-06 09:35:00 67 /min [facility] Respiratory rate 2019-11-06 09:35:00 20 /min [facility] Oxygen saturation in Arterial blood by Pulse oximetry 11-05 09:35:00 98 [facility] Sy[facility] pressure 2019-11-06 09:30:00 115 mm[Hg] [facility] Diastolic blood pressure 2019-11-06 09:30:00 66 mm[Hg] [facility] Body temperature 2019-11-06 09:10:00 36 Angie [facility] Body height 2019-11-06 07:42:00 185.4 cm [facility] Body weight Measured 2019-11-06 07:42:00 75.524 kg [facility] BMI 2019-11-06 07:42:00 21.97 kg/m2 [facility] Procedures Procedure Date / Time Performed Performing Clinician [facility] e REPORT OF PROCEDURE - ENDOSCOPY URL 2019-11-06 09:18:22 Getachew Arnavdory Linares [facility] TISSUE EXAM 2019-11-06 08:55:00 Arnav Josephmdmassimo [facility] COLONOSCOPY,POLYPECTOMY 2019-11-06 08:30:00 [facility] Plan of Care Planned Activity Planned Date Details Comments Source Future Scheduled Test 2019-11-10 00:00:00 INFLUENZA VACCINE (#1) [code = INFLUENZA VACCINE (#1)] [facility] Future Scheduled Test 2006-12-10 00:00:00 MEDICARE ANNUAL WE LLNESS (YEAR 2 or FIRST YEAR if no IPPE) [code = MEDICARE ANNUAL WELLNESS (YEAR 2 or FIRST YEAR if no IPPE)] [facility] r Future Scheduled Test 2005 00:00:00 PNEUMOCOCCAL 65+ L OW/MEDIUM RISK (1 of 2 - PCV13) [code = PNEUMOCOCCAL 65+ LOW/MEDIUM RISK (1 of 2 - PCV13)] [facility] Encounters Start Date/Time End Date/Time Encounter Type Admission Type [facility] Care Department Encounter ID Source 2019-09-17 08:29:21 Outpatient OWEN JUÁREZ MDA, MDA [id number] [place] 2019-09-17 08:29:21 Outpatient OWEN JUÁREZ MDA, MDA [id number] [facility] [place] 2019-09-14 21:36:51 Outpatient EDWIN MDA 1 [id number] [facility] [place] 2019-12-15 17:00:16 2019-12-15 17:20:16 Office Visit Linnette Calderón [facility] [id number] 2019-09-30 13:34:28 2019-09-30 14:07:40 Office Visit Joseluis Andre i [facility] [id number] 2019-09-17 06:42:23 2019-09-17 12:10:00 Outpatient EL SERRANO III, [facility]ARY [facility] Urology [id number] MD [place] 2019-09-15 14:33:38 2019-09-15 14:33:38 Outpatient EL JUSTA BORGES DA MDA [id number] MD [place] 2019-09-14 15:51:06 2019-09-14 23:59:00 Outpatient EL JUSTA BORGES DA MDA [id number] MD [place] 2019-09-14 10:43:31 2019-09-14 17:35:18 Outpatient EL SERRANO III, TED N MDA MDA [id number] MD [place] 2019-09-14 14:46:18 2019-09-14 16:00:58 Outpatient EL CONNIE LIMA MDA MDA [id number] MD [place] 2019-09-14 11:59:15 2019-09-14 15:50:00 Outpatient EL SERRANO III, [facility] N MDA MDA [id number] Edm[place] 2019-09-14 12:59:35 2019-09-14 14:50:57 Outpatient EL SERRANO III, [facility] N MDA MDA [id number] MD [place] 2019-09-14 12:45:05 2019-09-14 12:45:05 Outpatient EL SERRANO III, [facility] N MDA MDA [id number] MD [place] 2019-09-14 11:58:26 2019-09-14 11:58:26 Outpatient EL SERRANO III, [facility] N MDA MDA [id number] MD [place] 2019-05-15 13:01:51 2019-05-15 13:31:51 Office Visit Jagjit Mercer [facility] [id number] 2019-04-14 07:15:00 2019-04-14 08:16:00 Outpatient EL CHARLOTTE CÁRDENASALEXI PINEDA MDA [id number] MD [place] 2018-10-10 09:20:22 2018-10-10 10:00:53 Office Visit Mk Beaulieu [facility] [id number] 2018-02-12 22:57:00 2018-02-12 23:37:00 Departed Emergency Room [facility] [id number] [facility] Results Test Description Test Time Test Comments Results Result Comments Source Tissue Exam 2019-11-09 13:28:00 Test Item Case Report (test code = 104) Surgical Pathology Repor t Case: [id number] Authorizing Provider: Arnav Joseph MD Collected: 11/06/2019 08:55 AM Ordering Location: [facility] Received: 11/06/2019 11:43 AM SERVICES Pathologist: Kylah Montero MD Specimen: Polyp, Colon - Cecum, x 2 DIAGNOSIS (test code = 3220) q1pcbBNlSFSzu1nhAPNvnXZmSnDjWqWlTcBxQhywiFIeRTvqlmAmNVvzz9JnZ0YyAxWvKZhynlEnJZJw PfvkzschLNSsMVO5lnSdGXFhUKftZNOiZIuxYy8yvRPmlPixOjSmLXSsk9ljcqANaachmWc0pUlgG67c q3F6PrbsA1wlGRKiBVMoJ0UvDA2nLUIcGnx0XQS9NY J4WTPpPDQdF9ZdQC6sMVZreCLlPCj7n2hzkRelPQJeXMB3b3ngCPrnbkBpQB5spa8dvLo5z6bhwaUvWO VoMMVnfHELMKGgS9AcwGpkFc8dtCt2vHbmJbjgJOE4Rqy1OM8esl53kvb5yLgxNPEiarthTzY2ZWzeSM RbwzbsLQn3QRpfFSIebIqlIKctQMDknhqjSXayKDUm cXklWOdfNGWdBtoxHWgaELOaLKH5WUpos482UGY7NMpjp9qcg0dlqIEaLpb0JLUySkNwPsdoNKoya5Vk t2qyLEXfam9nBRB5kROaoEcsz2R5uWRbFHIbuOWjspVvSBVyChZ6GVfiSY6orz19RXTuYCL0cq0ttQOw xHesbbSamXOsWWzyQ1UeOLUfx607XCUhI9XzYARer2 U2koDeVaXbYVKhgRC0hrM3XYHkTDk8iUYxzkA8ugOshQIgX4lwuJ66RrTlpMNlA1ChxJ44AeNorFXwL1 GyiR80AuEixOGkY2VnqN87CqDjeSSzCPNbcINpFv2adHFcrSOhx2XvwDBuCCasR60ju713IWQbbrHiF9 mmoNYkuubxbHKsykzwYIfrvrQ9IBQiBOZdBQtrYRKn FPQkWoOomMUpNfQrObPakXizcXwwANimSqStCHNpZKjnO0dsVpEyRmEtPDJTHDQUAUUGF8zBBLrbGmjA MYJAHuhoDOQbTARwUOVYKKyAO0hLBVEWAF4COHKfXROHR9DDPPfTPMvrSv2kB2mODsrEYGJKEgXtASHJ XY0WV5aORzFDIo8ILf6DTHmYUGDhaJKkJWCvGGFBFy CWFLZAZCJVOAVmgLQmvEfgdiTeWLirf4AfFZglGRXhVA1keRxgTRJpJS2wFYTfM1asuN4hlur5NqUfGP VuEpG1LEUgshX9Sxc6EXUdOBhnm9ddv1GqMDVrAOb9iOgrBiJcTNEqu7oiqzHzTeIpFTNlNAXvNMIieP LuA390v3udr3xwogDqxAM6ZJCnLEM9QDydkbZqdpR1 EJcchTBpPeC7PYwwrvHqHQktlfWpuwRkWhg3CORfX851HJN3mSizk6ogAVV2JCAiMRRtRgUwWy9vqPTm T759LZXkWHXSMLLalBo0QZJmcdGkeqMxaCBSj091V631e8fqMVCwqiQtdIeQeofzp9gwN054QLLcxJVt ieLjRoShIALbiOPggFX1DDIoUA6sfupiWMyxMPqfJE FfgkT2ZSPxrQPfH3VnZHJtPA1ldtvcJLK3GAnnSMQbAWX9GtVlBHTba0Hqwvj4HkQnwe5tcw67XRF3u1 EhcKsdODZ7DUH0UjSjSi2pmZWdQAWnKO6tLdJwdGBlHCMmqw64dMgwLDwpPBS5BXGcdwJxr2Jmd0kvPj IgofRwL9xsM8UoXUBsISGtCJHyTcPgwpHlv3Gbf1Cb mIOqdRk1e6tiVLViMQPpnIjtn4vtQEJ0BUJfwAZpG3cdeN0vYLWpRD0figrvp7qxSQunHBubUHZwqIR0 wlR0ZOLxcZGlL1MmkN3uXWGnQKouWXZtiql6XvYhSv9gcXIczAptBZfyMouqVQvwKBJjvuKrarEvlJne ZGVjXHBsYWluXHBsYWluXGYwXGZzMjRccWxcbGFuZz QcNlIncRhwkVrqVRcwCwTgBKUvEVedK4nwIeFoBlOuHcf2KFWpjHTdCRRsQks9BHCmmKLlEMGQmFuzyS 7rCQVyoSuqfT5esJL2HKKcxzMsyXEXsW4nDPSBhQ7oZiR3QIKlGnj5OJi2JOAobIJlxH4= CPT Code(s) (test code = 3357) y9hosLPjHZZkyUSnYqBnEJXfJKMfw3dvPYCinICrDtIwHdSxVnNnFeynmFOxOLMhWiScn4tce829ySWf h0ytVTBqFeN0nFVpEOTuqHFaX289n9kld9szkcNnxPK4AHHnMTN5HHwytrBquqC8HBfmwDCiXgB1IJky yaOxBGduzxTgvtUrYce1DZGkY611RTK3yLqgp7zsQP X1UBZkBMVbMhLbBv5roUNuX467GCEoVCAPXVCdaIl0IWTxdkFwekLwkCEDr802M003l6gcVVKerfJlbR fCkqotb1ltW977CVYvxRTfirAmDyYeLBNliMHjoJO4JZYiDJ4aehdkMkDxDF6hkhmwIqHqBD5sode3Yi BvTI2rftbwFvBkCNmsOSQblnjvDTGsn3DwjupaVX3n P8Qal2Z6xL0aaVPxTURadMAsFwFaUXIpzf0enFLdKZjsw7AhUKL0wlS4vIVovVKuNVDhYM10Rwrtf8Qw ZksdEWO5IERxpiUdb9Qfo7euDvQhdpXfL0xtY7TdLFKhVMMcWXXmJoScnsVex9Zqv0PibEMuwAj0w4jj ZCToVJElxAfpz3ecFNP8EXOiR9C9oLVlg2ehWFrbBF UjsYO3ryusMZmzFILoffI6kjoqRByhQYPckNV5iliwBRuiTFVuDnG0lkhiERohIYVoKEO7IHbyh913TW M2SDfmYsnxOMccVMLaxbSqqoIgbTyqGAUsGBZyMXgiQWDtYZcnBSJnRSHqLgImxWvykSznuL8zEpFuId HmKScsNS3iKGRbX5skkPQuAKSdMPGeY6wgMbTtyN 6kwRqpXLocdjBjJJCJP8R7TQIbueF8AAEmLEqxWHM8 CLINICAL HISTORY (test code = 3356) c7bfaWWtYPJjjEZyHiTbFWXvZREgf0vkCKZxaRVbGcDjYtOaQpBtLiuqzSOzDZVqTjJvc3ckf516yCOo f5otMQWiOwB6cSUzOLWwuPVqS738o8rst0nkplSkiAT9VUQyUUJ1FXrkyqIeucZ9OBzlgQBhGnL1DFph qrVmRJevyjDkcqIxKae0ORDqW579HHS2qOokx1rzOU U4JGCyMNVnAhInUj6rwCSoQ464EBTxSFEBNELkmDv3AIVyenUssmXuiLIXp478A968z3lnCQOadeOmiR tTnnvmc8bqK892VOYydCPwcvByHtBmKRZtbQGitMW6MYCzIW1aqfxfKkAuAF0tryjpZxWaTP8tswr0Za YcVD0opofkLpNxVKovFZSxtjndLFBlx5RemmwoNR0h M5Taz5X2nE1whLSsVLUmrAJjInHpRAAmtt9riFUwQClbu4ShYRH4hfW4rHFjkFKfFOLwKV00Utyzy7Yv BtiwMSZ3LZQomiLcw4Mvp6ucSlUehoGyH1myF3QfKEHuSFTgIDDcVfEbbxAzc3Yta6TvsASgqKu3z0uh AFBxKBMdxZekm4hpGEK6QPBmT4U2vRPgm3uxLKczEI BdvVM4kciuENwsNMFvklW8qbogQRogRQBelCM0ujjeYChoNRHsGoI2klqdNYqyJVBaPTI0TFdng098ZK S4UFrsHabaKQkqHDApzxRptrXutVcjYDZgPBQyBNndAIPiKBacNPSmJRZoCqYxaCjwfUhgmK4cMsIgVu PzDYihOI9sZNXnC4prdMQqNRJsHNCgG6zjRxXbgS1q dAkeLGvgpxDrSSLyXH6aEHWoHCfhp2ZushbcCIGokbMdjpJsd5FtN08ov18pH7JyG8ZcJNrzCXT4 SPECIMEN SOURCE (test code = 3377) o9suiQJmOJOygMOyKcZgREYhTOXqp4azMNLozPCgVcMuIeIvDhEaKdhvcTJtJBPgGvApn6tip845rIDm n2jrQCSdFcD5qGSsEDIfiTPhP713h2zrv4ngxkRlpVU3WXXhEMN7QEatbaIwgzP6WPagnMMmMqZ1BCbs esLhTSnsgkRbicHeHam9QNAcD451GJI4hYdlg2pbAT Z8HRNpVTMaYeQkAf8nuOIdE341PVSuZRPYGXTztXf5WNFbimKylmZxgQSBy564D729o7abCTUmfaTycD jKglvvy1tyQ818UYPtzDFetiYzMnYvUEUxyPXmrSF1OSMvDR3eybgvPmTqTS5jqmvsExFeHG4jhgx8Qv SdIM1vcogcRpCcAIuhKIMircxlANQeq6VdfrxuBG9f U7Hji5I7kD2huPXeRTAqmAYeMjEpJJJapx2yyMVnTAxwp4QeEWV8hqJ6wBDkwPHiLXQsLJ49Nhrpx8Gs NupxOJK1YAZyqgKiz6Efs9nnHbHmdsQlA5xkQ6LpLRWsGIIySTZgDoVshwAai4Zso6ZgdOMqnGl4o3sx NEIuWGDiqXaqh2lnXED2QAQyP2N0lZWjn8hnJYfnUN KvfFP5uvraAUgzEPMkrzQ0jzphKZiqBOOycTQ2gfvdHGssWIRzMaO5ynudDRcgRTZtWHV0VQavq960PI Z0XSjfEihzBOatSFGvgePoifKorJbfSEWjHXXaNDjlEXZpPUqaQHEqXXSzDkBygDrxxCuoiH0dKsSmDh VvQEzkCH9eBGBnI4davLToUQVrFOFyH6ueWuVrdP6d eIqpIWuoudCcIKUvH1NuDMKldV5fEMEqoYbdJSFvkf1= GROSS DESCRIPTION (test code = 3366) c5hvgFVhUQXhrOLeSaLbWOHeIEVkj1slBGMunWPdXmPmTmEjAlHxUfufaGMgRLLbPmJry8iyj168jSUp y2lxTVTmLlU0eYFmYYGroKSpE941QBIfMGdno8xwu2XhXCLcqAVmd5L8IBWAohqmpXn0dHwdR96rx6U2 KqtfD4uxMSVqSGaoGGYgMQrziBHyUBE7BLRxHCY5WO folcNdfkK4TGljlDDvIzU3NFm8h6wqfNstYMJaWDC1i3hjPBtnjwOkRJ9khc1rjJy4u2jlwbUqSQGwGK OarHHMXVKdZ9MtlEadVz8zyPh5bMykXhljAKV1Ijt1DB2eyu40rik8iBihRXPwiqkrXfV4CBieILOzho cqZQe0VTgfXMQpfLgiCEskDXZkouejOVakMPJyiTss HOzmABNzEpumDJlaELTsTTU6LSlfa016RCU0LSadl2zqw4pajKOnFsr0KVGmFfNrGsmqJEfrj5Kcw9nx FXIami3dBHF6hUXcaYkuj8D0tBTmBEKhxGQukdDoKLPzJyR7ETjhPP6itb29KXZtPNQ7au5aeQZbcNrp gsMqhUYjTIkxN5JdALIbp115FSTnK6XmRRKkm6A0xg OoQoTbEFFlpUN6lhQ1BXJrLDo1xJJfrjS2beYhoBUxR1cbxM12BfSgjLYuC7XghY04MvZaoXAsH6RubC 75KoBgeZKoN2GzdG50NyJrdNVdTTEusYLkEg2cxKWuaYHyp9TbpMLrIXgmG98dj205VZGfhhQeJ7lgkE FpblxwbGFpblxmMFxmczIwXHFsXHBsYWluXGYwXGZz OpWilNldiB0jHxTpZvJcUPPLMUFsyZNfXLTywaJnu7BfGKlztvBgUDUouCXiPYfhgWhizJeiTLMbpJfk xfTwthGfXL1uLYIeO0Mhr5Wvf11cmtQfKnUyQFAiIMFjL1NtpU5bG37mb48jfN8jkZOiAXOxOVQ1u21l oSLlFQLejfkevGmxb6QdZSQvCSyaKI11xhKlTNAhoE HvmweauNYqoR7nAS0xQBYcGIhkKZtqCXW9JIQ7ETMpsJSyz9uvkkC0sEdndPDoysWaTvclbXVeMRZzEI 3eMVW0Dd7xnXQvAAWfjlA4q3OzYBqmLQGhDsUgZCYcqTxkXSOabb6= MICROSCOPIC DESCRIPTION (test code = 3371) s1jpbMDxFDKmbGVzQpTqHBYcGHUfp2kbWYOsoKLrHfZiDtPqHcEnUzkzpZTjRKBvKlRrh4xtk618aWLy w5umOEYpWlZ9nPDeXLYneRBdT455h2gwc9wciaWzkCU5UGUsTRQ0FYfxaaNqgrL4FIsnnKDkUrC7EAfd tqLrRJlqitDcbfAhMvz2GMBeF329SHH6vVcdf7rwCX R1ABFgFHDjAhYtJc1lkIWmM361FZXtZAUYOMPcvTz2RRFaudMvidEpsXZSx477D863i3elDKWjlyGisQ aMthfih1knD810KWFoqGZyzpGgFuFoXJMrmZYtsTV2ZIVjPJ6rxxyjMrUdFN6xxsrnHuHtUT6nzrl5Lg SnQY6wrvdfMoToQXjrQWIglvsbRHWas2RqyqgpPV4o P8Qtq2C8uW0dcUTzZQNdzCJdUxOpULLiuk9fyHIoWLuwd7RnAXM3omC6rMDvyDDmHIIeHN69Ripjz6Ts IjfdQWV9XTKtrlOku4Wvc8fbQlZqtjFsC7ztR7VyDZUlAUFuYJJeIzIntdKjw3Pma7MmkVWiiVn8z6iq YCIeZQYijDkjr4fsAUO0MBUaW7M2nIRmf4ziNEgzZH ZfsXS6qilnOTeqBBYluhB2zgajZIrcSQTajAF6tpzfPDygATGxAxO2zlegMOxiQSNeTGT3EBcht911XD P2YOiuXkgtMJxpMEJeovNbycPaqBmbHRUhNSVyINhzNVIkDWykETGcGEZnIrSlmIipnXsgxF6cGsQzAo RpOSvhRR2tJDBmK3vlgGEzGZSyNBOwY0ivRvRfhW2bbRhlIZwxntIiSABipxXiwc8iOU6njMCtcR== [id number] 13:28:00Surgical Pathology Report Case: [id number] Authorizing Provider: Arnav Joseph MD Collected: 11/06/2019 08:55 AM Ordering Location: [facility] Received: 11/06/2019 11:43 AM SERVICES Pathologist: Kylah Montero MD Specimen: Polyp, Colon - Cecum, x 2 CECAL POLYP, BIOPSY: - POLYPOID COLONIC MUCOSA WITH NO SIGNIFICANT PATHOLOGIC ABNORMALITY - NO DYSPLASIA Signing Pathologist Direct Phone Line: [phone] signed by Kylah Montero MD on 2019 at 1:28 [facility]/[id number] diagnosis: Screen for colon cancer Cecum colon polypReceived in formalin labeled with the patient's name, accession number and "cecum colon polyp" are two carlson-pink tissue fragments measuring up to 0.2 cm in greatest dimension which are filtered and submitted in toto in A1. [place]/pl [facility].TISSUE [id number] 15:40:00Surgical Pathology Report Case: [id number] Authorizing Provider: Kenroy Oconnell MD Collected: 09/13/2017 1010 Ordering Location: [facility] Laboratory Received: 09/13/2017 1017 Pathologist: Chris Cervantes MD Specimen: Polyp, Colon - Right/Ascending, ASCENDING COLON A. COLON, ASCENDING, ENDOSCOPIC SUBMUCOSAL DISSECTION: -TUBULAR ADENOMA - INKED/CAUTERIZED RESECTION MARGIN NEGATIVE FOR DYSPLASIA - PREVIOUS BIOPSY SITE IDENTIFIED Signing Pathologist Direct Phone Line: [phone] signed by Chris Cervantes MD on 09/18/2017 at 3:40 [id number] colon polyp Ascending colon polyp The specimen is received in a formalin-filled container labeled with the patient's information a nd labeled "ascending colon polyp" and consists of a shaved excision of colon mu cosa measuring 4.5 x 3.2 x 0.1 cm. The mucosal surface has an area of nodularity that is carlson-red measuring 2 x 0.4 x 0.2 cm.The specimen is not oriented.Ink cod e: Periphery-blue, deep-black.The specimen is serially sectioned from one end to the other. The specimen is entirely submitted in A1 through A12 (cassette with more than one slice is one contiguous section).Pictures have been taken. CG/ew P erformedBASIC METABOLIC [id number] 06:03:00* Test Item Value Reference Range Interpretation Comments SODIUM (BEAKER) (test code = 381) 137 meq/L 136-145 POTASSIUM (BEAKER) (test code = 379) 3.6 meq/L 3.5-5.1 CHLORIDE (BEAKER) (test code = 382) 105 meq/L 98-107 CO2 (BEAKER) (test code = 355) 25 meq/L 22-29 BLOOD UREA NITROGEN (BEAKER) (test code = 354) 6 mg/dL 7-21 L CREATININE (BEAKER) (test code = 358) 0.79 mg/dL 0.57-1.25 GLUCOSE RANDOM (BEAKER) (test code = 652) 100 mg/dL 70-105 CALCIUM (BEAKER) (test code = 697) 8.6 mg/dL 8.4-10.2 EGFR (BEAKER) (test code = 1092) 95 mL/min/1.73 sq m ESTIMATED GFR IS NOT ACCURATE CREATININE CLEARANCE IN PREDICTING GLOMERULAR FILTRATION RATE. ESTIMATED GFR IS NOT APPLICABLE FOR DIALYSIS PATIENTS. CBC W/PLT COUNT & AUTO [id number] 05:29:00* Test Item Value Reference Range Interpretation Comments WHITE BLOOD CELL COUNT (BEAKER) (test code = 775) 5.7 K/ L 3.5- 10.5 RED BLOOD CELL COUNT (BEAKER) (test code = 761) 4.12 M/ L 4.63-6 .08 L HEMOGLOBIN (BEAKER) (test code = 410) 12.5 GM/DL 13.7-17.5 L HEMATOCRIT (BEAKER) (test code = 411) 37.1 % 40.1-51.0 L MEAN CORPUSCULAR VOLUME (BEAKER) (test code = 753) 90.0 fL 79. 0-92.2 MEAN CORPUSCULAR HEMOGLOBIN (BEAKER) (test code = 751) 30.3 pg 25.7-32.2 MEAN CORPUSCULAR HEMOGLOBIN CONC (BEAKER) (test code = 752) 33.7 GM/DL 32.3-36.5 RED CELL DISTRIBUTION WIDTH (BEAKER) (test code = 412) 13.1 % 11.6-14.4 PLATELET COUNT (BEAKER) (test code = 756) 136 K/CU MM 150-450 L MEAN PLATELET VOLUME (BEAKER) (test code = 754) 10.5 fL 9.4-12 .4 NUCLEATED RED BLOOD CELLS (BEAKER) (test code = 413) 0 /100 WBC 0 -0 NEUTROPHILS RELATIVE PERCENT (BEAKER) (test code = 429) 65 % LYMPHOCYTES RELATIVE PERCENT (BEAKER) (test code = 430) 19 % MONOCYTES RELATIVE PERCENT (BEAKER) (test code = 431) 13 % EOSINOPHILS RELATIVE PERCENT (BEAKER) (test code = 432) 2 % BASOPHILS RELATIVE PERCENT (BEAKER) (test code = 437) 1 % NEUTROPHILS ABSOLUTE COUNT (BEAKER) (test code = 670) 3.70 K/ L 1.78-5.38 LYMPHOCYTES ABSOLUTE COUNT (BEAKER) (test code = 414) 1.05 K/ L 1.32-3.57 L MONOCYTES ABSOLUTE COUNT (BEAKER) (test code = 415) 0.72 K/ L 0. 30-0.82 EOSINOPHILS ABSOLUTE COUNT (BEAKER) (test code = 416) 0.12 K/ L 0.04-0.54 BASOPHILS ABSOLUTE COUNT (BEAKER) (test code = 417) 0.05 K/ L 0. 01-0.08 IMMATURE GRANULOCYTES-RELATIVE PERCENT (BEAKER) (test code = 2801) 0 % 0-1 CT, [id number] 13:06:00Reason for exam:->POST-OP PROBLEMWhat is the patient's [...] MDReport Verified Date/Time: 09/14/2017 13:06:23 Reading Location: [facility] C0 13Y CT Body Reading Room Electronically signed by: ROCKY WEINER M.D. on 01:06 PM [id number] 11:34:00* Test Item Value Reference Range Interpretation Comments LIPASE (BEAKER) (test code = 749) 10 U/L 8-78 ALT (SGPT)2017-09-14 11:34:00* Test Item Value Reference Range Interpretation Comments ALT (SGPT) (BEAKER) (test code = 347) 12 U/L 6-55 AST (SGOT)2017-09-14 11:34:00* Test Item Value Reference Range Interpretation Comments AST (SGOT) (BEAKER) (test code = 353) 18 U/L 5-34 BASIC METABOLIC [id number] 11:34:00* Test Item Value Reference Range Interpretation Comments SODIUM (BEAKER) (test code = 381) 139 meq/L 136-145 POTASSIUM (BEAKER) (test code = 379) 3.9 meq/L 3.5-5.1 CHLORIDE (BEAKER) (test code = 382) 104 meq/L 98-107 CO2 (BEAKER) (test code = 355) 25 meq/L 22-29 BLOOD UREA NITROGEN (BEAKER) (test code = 354) 6 mg/dL 7-21 L CREATININE (BEAKER) (test code = 358) 0.96 mg/dL 0.57-1.25 GLUCOSE RANDOM (BEAKER) (test code = 652) 108 mg/dL 70-105 H CALCIUM (BEAKER) (test code = 697) 9.3 mg/dL 8.4-10.2 EGFR (BEAKER) (test code = 1092) 76 mL/min/1.73 sq m ESTIMATED GFR IS NOT ACCURATE CREATININE CLEARANCE IN PREDICTING GLOMERULAR FILTRATION RATE. ESTIMATED GFR IS NOT APPLICABLE FOR DIALYSIS PATIENTS. BILIRUBIN, ADULT [id number] 11:34:00* Test Item Value Reference Range Interpretation Comments BILIRUBIN TOTAL (BEAKER) (test code = 377) 1.2 mg/dL 0.2-1.2 CBC W/PLT COUNT & AUTO [id number] 11:15:00* Test Item Value Reference Range Interpretation Comments WHITE BLOOD CELL COUNT (BEAKER) (test code = 775) 9.4 K/ L 3.5- 10.5 RED BLOOD CELL COUNT (BEAKER) (test code = 761) 4.64 M/ L 4.63-6 .08 HEMOGLOBIN (BEAKER) (test code = 410) 14.2 GM/DL 13.7-17.5 HEMATOCRIT (BEAKER) (test code = 411) 42.3 % 40.1-51.0 MEAN CORPUSCULAR VOLUME (BEAKER) (test code = 753) 91.2 fL 79. 0-92.2 MEAN CORPUSCULAR HEMOGLOBIN (BEAKER) (test code = 751) 30.6 pg 25.7-32.2 MEAN CORPUSCULAR HEMOGLOBIN CONC (BEAKER) (test code = 752) 33.6 GM/DL 32.3-36.5 RED CELL DISTRIBUTION WIDTH (BEAKER) (test code = 412) 13.2 % 11.6-14.4 PLATELET COUNT (BEAKER) (test code = 756) 165 K/CU MM 150-450 MEAN PLATELET VOLUME (BEAKER) (test code = 754) 10.3 fL 9.4-12 .4 NUCLEATED RED BLOOD CELLS (BEAKER) (test code = 413) 0 /100 WBC 0 -0 NEUTROPHILS RELATIVE PERCENT (BEAKER) (test code = 429) 73 % LYMPHOCYTES RELATIVE PERCENT (BEAKER) (test code = 430) 14 % MONOCYTES RELATIVE PERCENT (BEAKER) (test code = 431) 12 % EOSINOPHILS RELATIVE PERCENT (BEAKER) (test code = 432) 1 % BASOPHILS RELATIVE PERCENT (BEAKER) (test code = 437) 1 % NEUTROPHILS ABSOLUTE COUNT (BEAKER) (test code = 670) 6.81 K/ L 1.78-5.38 H LYMPHOCYTES ABSOLUTE COUNT (BEAKER) (test code = 414) 1.31 K/ L 1.32-3.57 L MONOCYTES ABSOLUTE COUNT (BEAKER) (test code = 415) 1.16 K/ L 0. 30-0.82 H EOSINOPHILS ABSOLUTE COUNT (BEAKER) (test code = 416) 0.05 K/ L 0.04-0.54 BASOPHILS ABSOLUTE COUNT (BEAKER) (test code = 417) 0.05 K/ L 0. 01-0.08 IMMATURE GRANULOCYTES-RELATIVE PERCENT (BEAKER) (test code = 2801) 0 % 0-1 POCT-LACTIC ACID, [id number] 11:07:00* Test Item Value Reference Range Interpretation Comments POC-LACTIC ACID, VENOUS (BEAKER) (test code = 2805) 1.2 mmol/L 0. 9-1.[address] [facility] [address] [facility] [address] [id number] 05:46:00* Test Item Value Reference Range Interpretation Comments MAGNESIUM (BEAKER) (test code = 627) 2.0 mg/dL 1.6-2.6 Specimen slightly hemolyzed [id number] 05:46:00* Test Item Value Reference Range Interpretation Comments PHOSPHORUS (BEAKER) (test code = 604) 2.7 mg/dL 2.3-4.7 Specimen slightly hemolyzed BASIC METABOLIC [id number] 05:46:00* Test Item Value Reference Range Interpretation Comments SODIUM (BEAKER) (test code = 381) 134 meq/L 136-145 L POTASSIUM (BEAKER) (test code = 379) 4.6 meq/L 3.5-5.1 Specimen slightly hemolyzed CHLORIDE (BEAKER) (test code = 382) 107 meq/L 98-107 CO2 (BEAKER) (test code = 355) 15 meq/L 22-29 L BLOOD UREA NITROGEN (BEAKER) (test code = 354) 7 mg/dL 7-21 CREATININE (BEAKER) (test code = 358) 0.92 mg/dL 0.57-1.25 Specimen slightly hemolyzed GLUCOSE RANDOM (BEAKER) (test code = 652) 115 mg/dL 70-105 H CALCIUM (BEAKER) (test code = 697) 8.4 mg/dL 8.4-10.2 EGFR (BEAKER) (test code = 1092) 80 mL/min/1.73 sq m ESTIMATED GFR IS NOT ACCURATE CREATININE CLEARANCE IN PREDICTING GLOMERULAR FILTRATION RATE. ESTIMATED GFR IS NOT APPLICABLE FOR DIALYSIS PATIENTS. CBC W/PLT COUNT & AUTO [id number] 05:19:00* Test Item Value Reference Range Interpretation Comments WHITE BLOOD CELL COUNT (BEAKER) (test code = 775) 11.5 K/ L 3.5- 10.5 H RED BLOOD CELL COUNT (BEAKER) (test code = 761) 4.65 M/ L 4.63-6 .08 HEMOGLOBIN (BEAKER) (test code = 410) 14.2 GM/DL 13.7-17.5 HEMATOCRIT (BEAKER) (test code = 411) 42.3 % 40.1-51.0 MEAN CORPUSCULAR VOLUME (BEAKER) (test code = 753) 91.0 fL 79. 0-92.2 MEAN CORPUSCULAR HEMOGLOBIN (BEAKER) (test code = 751) 30.5 pg 25.7-32.2 MEAN CORPUSCULAR HEMOGLOBIN CONC (BEAKER) (test code = 752) 33.6 GM/DL 32.3-36.5 RED CELL DISTRIBUTION WIDTH (BEAKER) (test code = 412) 13.2 % 11.6-14.4 PLATELET COUNT (BEAKER) (test code = 756) 102 K/CU MM 150-450 L MEAN PLATELET VOLUME (BEAKER) (test code = 754) 11.0 fL 9.4-12 .4 NUCLEATED RED BLOOD CELLS (BEAKER) (test code = 413) 0 /100 WBC 0 -0 NEUTROPHILS RELATIVE PERCENT (BEAKER) (test code = 429) 86 % LYMPHOCYTES RELATIVE PERCENT (BEAKER) (test code = 430) 5 % MONOCYTES RELATIVE PERCENT (BEAKER) (test code = 431) 9 % EOSINOPHILS RELATIVE PERCENT (BEAKER) (test code = 432) 0 % BASOPHILS RELATIVE PERCENT (BEAKER) (test code = 437) 0 % NEUTROPHILS ABSOLUTE COUNT (BEAKER) (test code = 670) 9.88 K/ L 1.78-5.38 H LYMPHOCYTES ABSOLUTE COUNT (BEAKER) (test code = 414) 0.62 K/ L 1.32-3.57 L MONOCYTES ABSOLUTE COUNT (BEAKER) (test code = 415) 0.98 K/ L 0. 30-0.82 H EOSINOPHILS ABSOLUTE COUNT (BEAKER) (test code = 416) 0.00 K/ L 0.04-0.54 L BASOPHILS ABSOLUTE COUNT (BEAKER) (test code = 417) 0.02 K/ L 0. 01-0.08 IMMATURE GRANULOCYTES-RELATIVE PERCENT (BEAKER) (test code = 280) 0 % 0-1
--- NOTE | 2019-12-17 20:23 | Diagnostic Imaging Report ---
EXAM: Scrotal Ultrasound with Duplex INDICATION: COMPARISON: None TECHNIQUE: Transverse and longitudinal images were obtained of the scrotum with grayscale imaging, color Doppler and spectral waveform analysis. FINDINGS: Right testis: Size: 3.8 x 1.7 x 3.2 cm, normal in size. Echogenicity: Normal Mass/Cysts: None Left testis: Size: 3.6 x 1.8 x 2.7 cm, normal in size. Echogenicity: Normal Mass/Cysts: None Epididymis: Appearance: Normal in size without increased vascularity. Mass/Cysts: None Extratesticular: Masses: None Hydrocele: None Varicocele: None Doppler: Normal arterial flow to both testes and symmetrical flow on color Doppler evaluation is seen. No evidence of testicular torsion. IMPRESSION: 1. No evidence of testicular torsion. 2. Normal scrotal ultrasound exam. Signed by: Vinh High MD on 12/17/2019 8:19 PM
[2019-12-17 20:33] LABS: BILIRUBIN,URINE NEGATIVE (NEGATIVE); CLARITY,URINE CLEAR (CLEAR); COLOR,URINE YELLOW (YELLOW); KETONES,URINE NEGATIVE (NEGATIVE); LEUKOCYTE ESTERASE ,URINE NEGATIVE (NEGATIVE); NITRITE,URINE NEGATIVE (NEGATIVE); PROTEIN,URINE DIPSTICK NEGATIVE (NEGATIVE); URINE UROBILINOGEN 0.2 mg/dL (0.2 - 1)
[2019-12-17 20:43] LABS: BACTERIA,URINE RARE /HPF
[2019-12-17 21:10] VITALS: BP 165/76
== END 2019-12-17 21:23 | disposition home or self-care (01) ==
LOC: ER 19:16
DX: N50.811 Right testicular pain (principal); K40.90 Unilateral inguinal hernia, without obstruction or gangrene, not specified as recurrent; I10 Essential (primary) hypertension; E78.5 Hyperlipidemia, unspecified; Z85.46 Personal history of malignant neoplasm of prostate
CPT/HCPCS: 76870; 81001; 93976; 99283